=== PATIENT | female | born 1965 | race Caucasian/White ===

== ENCOUNTER 2024-01-12 11:10 | Outpatient (CLI) | payer OTHER, SELFPAY ==
--- NOTE | 2024-01-12 11:36 | ECG_ITS ---
Measurements Intervals [place] Rate: 69 P: 16 MI: 161 QRS: 10 QRSD: 76 T: 16 QT: 378 QTc: 407 Interpretive Statements SINUS RHYTHM RSR' IN V1 OR V2, PROBABLY NORMAL VARIANT LOW QRS VOLTAGE IN PRECORDIAL LEADS BASELINE ARTIFACT- I, III, AVR, AVL, AVF BORDERLINE ECG NO PREVIOUS ECG AVAILABLE FOR COMPARISON Electronically Signed On 01-12-2024 12:10:14 [employer] by Ag Segovia D.O.
[2024-01-12 12:15] LABS: Anion Gap 5 mmol/L (8-16); Blood Urea Nitrogen 9 mg/dL (7-17); Calcium 9.6 mg/dL (8.4-10.2); Carbon Dioxide 30 mmol/L (22-30); Chloride 103 mmol/L (98-107); Estimated Glomerular Filt Rate > 60; Glucose 144 mg/dL (65-110); Potassium 4.4 mmol/L (3.4-5.0); Sodium 138 mmol/L (137-145)
== END 2024-01-12 11:11 | disposition home or self-care (01) ==
PROVIDERS: Anesthesiology; Visit Provider Otolaryngology
DX: Z01.818 Encounter for other preprocedural examination (principal); R93.1 Abnormal findings on diagnostic imaging of heart and coronary circulation; E11.9 Type 2 diabetes mellitus without complications; I10 Essential (primary) hypertension
CPT/HCPCS: 36415; 80048; 93005

== ENCOUNTER 2024-01-16 00:29 | Day surgery (SDC) | payer OTHER, SELFPAY ==
[2024-01-09 15:42] VITALS: BMI 36.6
--- NOTE | 2024-01-09 15:49 | PC.NURSE ---
Report to the Outpatient Waiting Room, entrance under the green pavilion located off [facility], at time 6:00 on date 01/16/24. Planned Procedure Time: 7:30. Time changes happen often and if your time is changed the preop area will call you the afternoon before. - You and your visitor will be asked to self-screen and do not enter if you have any COVID symptoms. - A mask is optional within the hospital at this time. Patients may have clear liquids (water, carbonated beverages, clear teas, apple juice) until 3 hours prior to surgery (4:30) with a maximum of 20 ounces. - No food from midnight until time of surgery Take the following medications with a SIP of water the morning of surgery: CARVEDILOL, DULOXETINE DO NOT STOP ANY OF YOUR OTHER PRESCRIPTION MEDICATIONS PRIOR TO SURGERY ?EXCEPT THE FOLLOWING Medications to discontinue per physician: VITAMINS/SUPPLEMENTS Date to take last dose: 01/12/24 Please no make-up, nail macedonian, hairspray, perfume, deodorant, or body powder the day of surgery. No jewelry (including any body piercings) or valuables the day of surgery, leave them at home. Please take a shower or bath the night before, or the morning of, surgery with an antibacterial soap. Wear comfortable, loose fitting clothing. - Jewelry must be removed prior to entering the operating room. Rings and piercings that are not removed may be cut off. - The hospital will not accept responsibility for valuables. - Please leave all valuables, including medications, at home the day of surgery. If you are going home after surgery, a licensed local tanker truck driver must drive you home. - NO public transportation without another adult if you receive anesthesia. - We recommend that an adult stay with you for 24 hours following discharge. - We also recommend that you do not drive, make important decision, drink alcoholic beverages, or take any drugs that were not prescribed by your health care provider for at least 24 hours after your discharge time. Follow any additional instructions given to you from your surgeon. If you or anyone in your household have experienced Covid symptoms in the past week, please notify your surgeon or the nurse liaison at the phone number below for possible testing. Telephone instructions given to PT - DOMINIC RICO and asked if any additional questions and then verbalized understanding. Patient advised to call surgeon office or pre surgery nurse liaison [phone] if any additional questions.
[2024-01-16] VITALS (8 sets, daily range): BP systolic 103–133; BP diastolic 67–93; PULSE 65–74; RESP 9–20; TEMP 36.1–36.6; O2SAT 96–100
[2024-01-16] MEDS: LACTATED RINGERS 1,000 ML 30 ML IV CONT ×2 (06:40→09:02)
[2024-01-16 06:44] LABS: Glucose Point of Care 193 mg/dl (65-105)
--- NOTE | 2024-01-16 06:56 | WPDANESEPPF ---
Anes - Initial Pre Proc Eval Procedure: Operation Date: 01/16/24 07:30 Proposed Procedures p Left Tympanoplasty - Terell Mcdowell MD Date/Time: 01/16/24 06:56 Surgeon: Terell Mcdowell MD Pre Op Diagnosis: Lt Ear Membrane Perforation Patient Data Age: 58 Gender: F Height: 1.57 m Weight: 98.5 kg Last Vital Signs Temp 36.6 C 01/16/24 06:14 Pulse 69 01/16/24 06:14 Resp 20 01/16/24 06:14 BP 103/67 01/16/24 06:14 Pulse Ox 96 01/16/24 06:14 O2 Del Method Room Air 01/16/24 06:14 Allergies Allergy/AdvReac Type Severity Reaction Status Date / Time No Known Allergies Allergy Verified 01/16/24 06:17 Home Medications Medication Instructions Recorded Confirmed Type atorvastatin 40 mg tablet 40 mg PO DAILY 01/09/24 01/16/24 History carvedilol 12.5 mg tablet 12.5 mg PO DAILY 01/09/24 01/16/24 History cholecalciferol (vitamin D3) 50 50 mcg PO DAILY 01/09/24 01/16/24 History mcg (2,000 unit) tablet (Vitamin D3) cyanocobalamin (vitamin B-12) 1,000 mcg PO DAILY 01/09/24 01/16/24 History 1,000 mcg tablet duloxetine 20 mg capsule,delayed 20 mg PO DAILY 01/09/24 01/16/24 History release mayda root extract 15 mg chewable 15 mg PO DAILY 01/09/24 01/16/24 History tablet montelukast 10 mg tablet 10 mg PO DAILY 01/09/24 01/16/24 History pantoprazole 20 mg tablet,delayed 20 mg PO QAM PRN GERD 01/09/24 01/16/24 History release empagliflozin 25 mg tablet 25 mg PO DAILY 01/16/24 01/16/24 History (Jardiance) Laboratory Tests 01/16/24 06:42 POC Capillary Glucose 193 H mg/dl (65-105) Patient hx anesthesia problems: none Family hx anesthesia problems: none Results Review: All pre-operative results and documents have been reviewed as part of the pre-operative evaluation. [facility] Past Medical History Medical History (Updated 01/16/24 @ 07:08 by Terell Mcdowell MD) Bipolar disorder Diabetes type 2, controlled Hyperlipidemia Hypertension NAYLA (obstructive sleep apnea) Social History Social History Smoking status: Never smoker Alcohol intake: never Substance use: never Substance use type: does not use Living arrangements: with family Spiritual care concerns: No Anes - Eval Final PreProcedure Day of Procedure 01/16/24 06:56 Patient weight: obese Heart: regular rate and rhythm Lungs: clear to auscultation Airway: Mallampati scale class II Neurological: alert and oriented Last oral intake: >/= 8 hours ASA classification: III Emergent: no Anesthetic plan: proceed Anesthesia type and monitoring: general LMA and standard monitoring Results Review: All pre-operative results and documents have been reviewed as part of the pre-operative evaluation. Informed Consent: The patient's anesthetic plan and its attendant risks and benefits were discussed with the patient/family/POA. Questions were solicited and answers provided to the satisfaction of the patient/family/POA.
--- NOTE | 2024-01-16 07:07 | PM.IMHP ---
H&P: HPI History of Present Illness Date/Time: 01/16/24 07:07 Chief Complaint: Left TM perforation Narrative: Left TM perforation, likely secondary to ear tubes from years ago. Has hearing loss. Review of Systems Review of Systems: All systems reviewed & are unremarkable except as noted in HPI and below PMFSH Past Medical History Medical History Bipolar disorder Diabetes type 2, controlled Hyperlipidemia Hypertension NAYLA (obstructive sleep apnea) Social History Social History Smoking status: Never smoker Alcohol intake: never Substance use: never Substance use type: does not use Living arrangements: with family Spiritual care concerns: No Meds Home Medications and Allergies Home Medications Medication Instructions Recorded Confirmed Type atorvastatin 40 mg tablet 40 mg PO DAILY 01/09/24 01/16/24 History carvedilol 12.5 mg tablet 12.5 mg PO DAILY 01/09/24 01/16/24 History cholecalciferol (vitamin D3) 50 50 mcg PO DAILY 01/09/24 01/16/24 History mcg (2,000 unit) tablet (Vitamin D3) cyanocobalamin (vitamin B-12) 1,000 mcg PO DAILY 01/09/24 01/16/24 History 1,000 mcg tablet duloxetine 20 mg capsule,delayed 20 mg PO DAILY 01/09/24 01/16/24 History release mayda root extract 15 mg chewable 15 mg PO DAILY 01/09/24 01/16/24 History tablet montelukast 10 mg tablet 10 mg PO DAILY 01/09/24 01/16/24 History pantoprazole 20 mg tablet,delayed 20 mg PO QAM PRN GERD 01/09/24 01/16/24 History release empagliflozin 25 mg tablet 25 mg PO DAILY 01/16/24 01/16/24 History (Jardiance) Allergies Allergy/AdvReac Type Severity Reaction Status Date / Time No Known Allergies Allergy Verified 01/16/24 06:17 Vital Signs Vital Signs - 24 hr 01/16/24 06:14 Temperature 36.6 C Pulse Rate 69 Respiratory Rate 20 Blood Pressure 103/67 Pulse Oximetry 96 Oxygen Delivery Room Air Exam Narrative: Left 40% central perforation, dry edges, no infection or choesteatoma, rest of exam wnl. Assessment and Plan Assessment and plan (1) Perforation of left tympanic membrane: Code(s): H72.92 - Unspecified perforation of tympanic membrane, left ear Status: Acute Plan Akilah has left TM perforation, here today for left tympanoplasty. r/b/a/ reviewed with pt who understand and agrees to proceed. refer to outpt H&P for further detail.
--- NOTE | 2024-01-16 07:09 | WPDHPUPDATE1 ---
History and Physical Update Update Date/Time: 01/16/24 07:09 History and Physical has been reviewed, including an updated exam of the patient. There are NO changes in the patient's condition. Risks, benefits, and alternatives have been discussed and questions answered. Patient agrees to proceed with procedure.
[2024-01-16] MEDS: ceFAZolin 2 GM/D5W 50 ML 2 GM/50 ML BAG IVPB (07:30)
[2024-01-16] MEDS: LIDO 1%/EPINEPHRINE 1:100,000 50 ML VIAL 6 ML INFILTRATE (08:16)
[2024-01-16] MEDS: EPINEPHrine HCL INJ 1 MG/ML AMPUL IRRIGATION (08:18)
[2024-01-16] MEDS: MUPIROCIN 2% OINT 22 GM TUBE 1 APPLIC TOPICAL (08:59)
[2024-01-16] MEDS: CIPROFLOXACIN HC OTIC 10 ML 3 DROP LEFT EAR (09:00)
--- NOTE | 2024-01-16 09:07 | P.OP_ITS ---
Procedure Note - Detailed Date of Procedure 01/16/24 Pre-op Diagnosis Lt Ear Membrane Perforation Post-op Diagnosis Same Procedure Performed Left medial graft tympanoplasty via temporalis fascia graft Surgeon Terell Mcdowell MD Anesthesia General Indications Left TM perforation Findings Left 40% central-posterior perforation Description of Procedure On the date of surgery, the patient was identified in the preoperative holding area.? The left ear was marked indicating the correct side of surgery.? They consented to surgery and was brought back to the operating room and placed under general anesthesia.? A timeout was performed verifying the correct patient identity and procedure to be performed.? The bed was rotated 180 degrees and a small amount of hair was trimmed from the left postauricular area.? They were then prepped and draped in standard fashion for left sided tympanoplasty. Attention first was directed through the ear canal.? Cerumen was removed under binocular microscopy and the perforation was examined and found to be 40% of the size of the tympanic membrane.? The middle ear space was dry.? The edges of the perforation were freshened using a nicholson pick and microcup forceps.? Next, a 4 q uadrant injection was performed with 1% lidocaine with 1:100k epinephrine.? The postauricular sulcus was also injected.? Using an angled and straight habematolel blade, a vascular strip was elevated and tympanomeatal flap incisions were made.? The tympanomeatal flap was then elevated partially and a cotton ball soaked in 1:1000 epinephrine diluted with 10cc of saline was placed in the canal. Next, attention was directed behind the ear.? An incision was made in the post- auricular sulcus.? Using bovie electrocautery, dissection was performed through the subcutaneous tissues down to the level of the fascia.? The temporalis fascia was then identified and dissected free superficially and deep.? A 15 blade was used to incise through the fascia and then was elevated.? A 2x2cm window of fascia was then harvested, flattened on a anila block and then placed in a graft press for 5 minutes, then opened to dry. While the graft was prepared, the tympanomeatal flap was elevated and the annulus was lifted out of the annular groove.? The middle ear space was entered with a pick and the annulus was fully elevated out of the groove and the tympanomeatal flap was completely elevated.? Several small pieces of gelfoam were placed in the middle ear space.? Next, the graft was? placed in the canal and in the middle ear space medial to the hoh tympanic membrane.? Some manipulation allowed it to cover the entire perforation.? Gelfoam was then packed in the middle ear space further to bulk out the graft.? Once satisfied with the positioning covering the entire perforation, the tympanomeatal flap and graft were laid down.? The ear canal was further packed with gelfoam to the cartilaginous meatus.? The postauricular incision was then closed with 3-0 vicryl, 4-0 monocryl and dermabond in a layered fashion.? The canal was filled with mupirocin ointment and a cotton ball was placed in the meatus.? The drapes were taken down and care of the patient was returned to anesthesia who woke them up in the OR and transferred to the PACU for recovery in stable condition without complication. Estimated Blood Loss 5 Drains No Packing No Pathology None sent Complications No immediate complications Condition Stable Disposition PACU
[2024-01-16 10:00] LABS: Glucose Point of Care 188 mg/dl (65-105)
== END 2024-01-16 11:00 | disposition home or self-care (01) ==
PROVIDERS: Visit Provider Otolaryngology
PROC: (CPT 69610; principal; 2024-01-16 07:30)
DX: H72.02 Central perforation of tympanic membrane, left ear (principal); E11.9 Type 2 diabetes mellitus without complications; E78.5 Hyperlipidemia, unspecified; I10 Essential (primary) hypertension; G47.33 Obstructive sleep apnea (adult) (pediatric); F31.9 Bipolar disorder, unspecified; Z79.84 Long term (current) use of oral hypoglycemic drugs; E66.9 Obesity, unspecified; Z68.39 Body mass index [BMI] 39.0-39.9, adult
CPT/HCPCS: 69610; 15769; 82948; A9270; J0171; J0690; J1100; J2250; J2405; J2704; J3010; J7120